=== PATIENT | male | born 1965 | race Caucasian/White ===

== ENCOUNTER → 2020-02-05 | Outpatient (CLI) | payer SELFPAY ==
[~2020-02-05] MED LIST: HYDR1TAB94 PO; Hydrocodone-Ap1 EA23 PO; IBUP600 PO; IBUP800; LEVE500 PO; ONDA4 PO; PROM25 PO; Ultram50 MG PO
== END | disposition home or self-care (01) ==
LOC: LAB SHORT 08:27 → LAB 08:27 → LAB SHORT 02-06 08:27
DX: R30.0 Dysuria (principal)
CPT/HCPCS: 87077; 87086; 87186

== ENCOUNTER → 2020-03-21 | Outpatient (CLI) | payer SELFPAY | END | disposition home or self-care (01) | LOC: LAB 15:15 | DX: R30.0 Dysuria (principal) | CPT/HCPCS: 87086 ==

== ENCOUNTER 2020-06-18 12:52 | Emergency (ER) | payer OTHER ==
[~2020-06-18] VITALS: Ht 177.8 cm; Wt 78.0 kg
[2020-06-18 13:20] LABS: BASOPHILS ABSOLUTE AUTO 0.04 K/mm3 (0.00-0.23); BASOPHILS PERCENT AUTO 0 % (0-2); EOSINOPHILS ABSOLUTE AUTO 0.04 K/mm3 (0.00-0.68); EOSINOPHILS PERCENT AUTO 0 % (0-6); Hematocrit 43.2 % (37.0-53.0); Hemoglobin 14.6 g/dL (13.5-17.5); IMMATURE GRAN ABSOLUTE AUTO 0.12 K/mm3 (0.00-0.10); IMMATURE GRAN PERCENT AUTO 1 % (0-1); LYMPHOCYTES ABSOLUTE AUTO 1.09 K/mm3 (0.84-5.20); LYMPHOCYTES PERCENT AUTO 6 % (21-46); MONOCYTES ABSOLUTE AUTO 1.84 K/mm3 (0.16-1.47); MONOCYTES PERCENT AUTO 11 % (4-13); Mean Corpuscular HGB 28.2 pg (26.0-34.0); Mean Corpuscular HGB Conc 33.8 g/dL (31.5-36.5); Mean Corpuscular Volume 84 fL (80-100); Mean Platelet Volume 10.5 fL (9.1-12.4); NEUTROPHILS PERCENT AUTO 82 % (41-73); Platelet Count 218 K/mm3 (150-400); RDW Coefficient Variation 13.1 % (11.7-14.2); RDW Standard Deviation 40.3 fL (35.1-46.3); Red Blood Cell Count 5.17 M/mm3 (4.30-5.90); White Blood Cell Count 17.13 K/mm3 (4.00-11.30)
[2020-06-18 13:45] LABS: Alanine Aminotransfer (ALT/SGP 22 U/L (12-78); Albumin, Blood 3.2 g/dL (3.4-5.0); Albumin/Globulin Ratio 0.7 (0.8-1.8); Alk Phos 186 U/L (50-136); Anion Gap 10 mmol/L (6-16); Aspartate Aminotrans (AST/SGOT 20 U/L (12-37); Bilirubin, Total 1.8 mg/dL (0.1-1.0); Blood Urea Nitrogen 20 mg/dL (8-24); Bun/Creatinine Ratio 16.3 (12.0-20.0); CO2, Blood 20 mmol/L (21-32); Calcium, Blood 9.4 mg/dL (8.5-10.1); Chloride, Blood 107 mmol/L (98-108); Creatinine, Blood 1.23 mg/dL (0.60-1.20); Globulin, Blood 4.5 g/dL (2.2-4.0); Glomerular Filtration Rate >60 (60-); Glucose, Blood 99 mg/dL (70-99); Potassium, Blood 3.8 mmol/L (3.5-5.5); Sodium, Blood 137 mmol/L (136-145); Total Protein, Blood 7.7 g/dL (6.4-8.2)
[2020-06-18 15:00] LABS: Source, Urine Clean Catch
[2020-06-18 15:14] LABS: Appearance, Urine Cloudy (Clear); Bilirubin, Urine Neg (Neg); Blood, Urine 4+ (Neg); Color, Urine Yellow (P-Yellow); Glucose Qualitative, Urine Neg (Neg); Ketones, Urine 3+ (Neg); Leukocyte Esterase, Urine 3+ (Neg); Nitrite, Urine Neg (Neg); Protein, Urine 3+ (Neg); Urobilinogen, Urine 2+ (Normal)
[2020-06-18 15:22] LABS: White Blood Cells, Urine TNTC /hpf (0-5)
[2020-06-18 15:23] LABS: Bacteria Mod /hpf; Squamous Epithelial Cells Not Seen /hpf (Few)
[2020-06-18 17:41] LABS: Influenza A, PCR NEGATIVE (NEGATIVE); Influenza B, PCR NEGATIVE (NEGATIVE); Resp Syncytial Virus, PCR NEGATIVE (NEGATIVE); SARS-Cov-2 (COVID-19) PCR, MMC NEGATIVE (NEGATIVE)
== END 2020-06-18 18:50 | disposition home or self-care (01) ==
LOC: ER 12:52
PROVIDERS: Emergency Medicine; Physician Assistant
DX: N13.2 Hydronephrosis with renal and ureteral calculous obstruction (principal); Z88.5 Allergy status to narcotic agent; Z87.891 Personal history of nicotine dependence; Z20.822 Contact with and (suspected) exposure to COVID-19
CPT/HCPCS: 0241U; 36415; 74176; 80053; 81001; 83605; 85025; 87040; 87086; 96361; 96365; 96375; 99284-25; J0696; J1885; J2405; J7030

== ENCOUNTER 2025-02-27 04:58 | Observation (INO) | payer OTHER ==
[~2025-02-27] VITALS: Ht 177.8 cm; Wt 74.9 kg
[2025-02-27 05:54] LABS: BASOPHILS ABSOLUTE AUTO 0.03 K/mm3 (0.00-0.23); BASOPHILS PERCENT AUTO 0 % (0-2); EOSINOPHILS ABSOLUTE AUTO 0.15 K/mm3 (0.00-0.68); EOSINOPHILS PERCENT AUTO 2 % (0-6); Hematocrit 47.5 % (37.0-53.0); Hemoglobin 15.7 g/dL (13.5-17.5); IMMATURE GRAN ABSOLUTE AUTO 0.01 K/mm3 (0.00-0.10); IMMATURE GRAN PERCENT AUTO 0 % (0-1); LYMPHOCYTES ABSOLUTE AUTO 2.88 K/mm3 (0.84-5.20); LYMPHOCYTES PERCENT AUTO 35 % (21-46); MONOCYTES ABSOLUTE AUTO 0.70 K/mm3 (0.16-1.47); MONOCYTES PERCENT AUTO 8 % (4-13); Mean Corpuscular HGB Conc 33.1 g/dL (31.5-36.5); Mean Corpuscular Volume 85 fL (80-100); NEUTROPHILS ABSOLUTE AUTO 4.55 K/mm3 (1.96-9.15); NEUTROPHILS PERCENT AUTO 55 % (41-73); NRBC ABSOLUTE 0.00 K/mm3 (0.00-0.02); NRBC Auto 0.0 /100 WBC (0.0-0.2); Platelet Count 293 K/mm3 (150-400); RDW Coefficient Variation 13.5 % (11.7-14.2); RDW Standard Deviation 42.0 fL (35.1-46.3)
[2025-02-27 06:14] LABS: Alanine Aminotransfer (ALT/SGP 28.0 U/L (12-78); Albumin, Blood 4.4 g/dL (3.4-5.0); Albumin/Globulin Ratio 1.3 (0.8-1.8); Anion Gap 9.0 mmol/L (3-11); Aspartate Aminotrans (AST/SGOT 19.0 U/L (12-37); Bilirubin, Total 1.0 mg/dL (0.1-1.0); Blood Urea Nitrogen 16.0 mg/dL (8-24); CO2, Blood 26.0 mmol/L (21-32); Calcium, Blood 9.4 mg/dL (8.5-10.1); Chloride, Blood 108.0 mmol/L (98-108); Creatinine, Blood 1.01 mg/dL (0.60-1.20); Globulin, Blood 3.4 g/dL (2.2-4.0); Glucose, Blood 87.0 mg/dL (70-99); Potassium, Blood 3.5 mmol/L (3.5-5.5); Sodium, Blood 139.0 mmol/L (136-145); Total Protein, Blood 7.8 g/dL (6.4-8.2)
[2025-02-27] MEDS ORDERED: NS 500 ML IV SCH (06:20)
[2025-02-27] MEDS ORDERED: Ondansetron HCl 2 MG / ML 2ML Vial IV ONE (06:20)
[2025-02-27] MEDS ORDERED: FLU VACC TS2025-26(6MOS UP)/PF 45 MCG/0.5 ML SYRINGE IM SCH (07:25)
[2025-02-27 11:15] VITALS: BP 136/104
--- NOTE | 2025-02-27 11:25 | NUR ---
1115- pt arrived in stable condition. ind in rom. steady on feet.
[2025-02-27] MEDS ORDERED: Prinivil10 MG PO (11:29)
[2025-02-27] MEDS ORDERED: FAMO20 PO (11:30)
[2025-02-27 12:05] LABS: Prostate Specific Antigen 2.290 ng/mL (0.000-4.000)
--- NOTE | 2025-02-27 13:26 | NUR ---
1200- THIS RN CALLED MD BECERRIL AND ASKED FOR PT'S HOME MED LISINOPRIL 10MG TO BE ORDERED PER PT'S DEMANDING REQUEST. PT IS UPSET HE HAS NOT BEEN GIVEN HIS MED YET TODAY DESPITE ASKING JONE IN THE ER WELL (PER PT). MD BECERRIL SAID HE WILL GET TO IT WHEN HE CAN.
[2025-02-27 15:42] VITALS: BP 150/94
[2025-02-27] MEDS ORDERED: Polyethylene Glycol 3350 17 gm PO ONE (16:00)
[2025-02-27] MEDS ORDERED: Peg/Electrolytes 4,000 ML BTL PO ONE (18:00)
--- NOTE | 2025-02-27 18:30 | NUR ---
SUMMARY- AAOX4. ANXIOUS AND IRRITABLE THIS SHIFT. PT CAN EASILY OBSESS OVER TOPICS AND BECOME UPSET. PT SOMEWHAT COOPERATIVE THIS SHIFT. PT'S PLAN OF CARE REIENFORCED SEVERAL TIMES THIS SHIFT PER PT REQUEST. NO ACUTE EVENTS THIS SHIFT SINCE ADMISSION TO FLOOR. PT HAD X3 SMALL BM'S THIS SHIFT PRIOR TO STARTING BOWEL PREP THIS EVENING. X1 BM WAS SLIGHTLY BLOODY. PT DENIES ANY PAINT THIS SHIFT. PT SPENT ALMOST THE ENTIRE SHIFT SINCE ADMISSION ON THE PHONE ON FACETIME WITH HIS [facility] IN THE [facility].
[2025-02-27 19:33] VITALS: BP 151/98
[2025-02-28] VITALS (40 sets, daily range): BP systolic 93–148; BP diastolic 57–97
--- NOTE | 2025-02-28 02:29 | NUR ---
ORIENTING NURSE DOCUMENTATION REVIEW: TREATMENTS, MEDICATIONS AND PATIENT CARE PROVIDED TO PATIENT AND DOCUMENTATION ENTERED BY ORIENTING NURSEBRODERICK, OVERSEEN BY THIS RN.
--- NOTE | 2025-02-28 04:51 | NUR ---
SHIFT SUMMARY PATIENT IS A&OX4, PLESANT AND COOPERATIVE LATER IN SHIFT, HAS A LOT OF STRESS ONGOING AND AFTER VENTING PATIENT BECAME A LITTLE HAPPIER. HE IS SIPS AND CHIPS WILL BE MADE NPO AT 0600, FINISHED THE GO LIGHTLY ALTHOUGH IS COMPLAINING OF ABDOMNIAL CRAMPING DUE TO THE GO LIGHTLY. CALL LIGHT IN REACH, ABLE TO MAKE NEEDS KNOWN, BED AT LOWEST LEVEL, BED RAILS UP X 2.
[2025-02-28 05:39] LABS: BASOPHILS ABSOLUTE AUTO 0.05 K/mm3 (0.00-0.23); BASOPHILS PERCENT AUTO 1 % (0-2); EOSINOPHILS ABSOLUTE AUTO 0.20 K/mm3 (0.00-0.68); EOSINOPHILS PERCENT AUTO 2 % (0-6); Hematocrit 42.5 % (37.0-53.0); Hemoglobin 14.1 g/dL (13.5-17.5); IMMATURE GRAN ABSOLUTE AUTO 0.04 K/mm3 (0.00-0.10); IMMATURE GRAN PERCENT AUTO 0 % (0-1); LYMPHOCYTES ABSOLUTE AUTO 2.48 K/mm3 (0.84-5.20); LYMPHOCYTES PERCENT AUTO 27 % (21-46); MONOCYTES ABSOLUTE AUTO 0.84 K/mm3 (0.16-1.47); MONOCYTES PERCENT AUTO 9 % (4-13); Mean Corpuscular HGB Conc 33.2 g/dL (31.5-36.5); Mean Corpuscular Volume 85 fL (80-100); NEUTROPHILS ABSOLUTE AUTO 5.62 K/mm3 (1.96-9.15); NEUTROPHILS PERCENT AUTO 61 % (41-73); NRBC ABSOLUTE 0.00 K/mm3 (0.00-0.02); NRBC Auto 0.0 /100 WBC (0.0-0.2); Platelet Count 266 K/mm3 (150-400); RDW Coefficient Variation 13.6 % (11.7-14.2); RDW Standard Deviation 41.8 fL (35.1-46.3)
[2025-02-28 06:07] LABS: Anion Gap 9.0 mmol/L (3-11); Blood Urea Nitrogen 10.0 mg/dL (8-24); CO2, Blood 25.0 mmol/L (21-32); Calcium, Blood 8.7 mg/dL (8.5-10.1); Chloride, Blood 109.0 mmol/L (98-108); Creatinine, Blood 0.85 mg/dL (0.60-1.20); Glucose, Blood 85.0 mg/dL (70-99); Potassium, Blood 3.4 mmol/L (3.5-5.5); Sodium, Blood 140.0 mmol/L (136-145)
[2025-02-28] MEDS ORDERED: Potassium Chl 20MEQ/Water100ML 100 ML IV STA (08:00)
--- NOTE | 2025-02-28 08:42 | NUR ---
OUT OF ROOM NOTE: PATIENT LEFT THE ROOM VIA W/C AT 0841 TO DAY SURGERY FOR COLONOSCOPY.
--- NOTE | 2025-02-28 09:06 | NUR ---
02/28/25 0906 Jojo Dominguez CONFIRMED AND REVIEWED H&P, MEDCICATIONS, ALLERGIES, MEDICAL HISTORY, RESPIRATORY HISTORY, VITAL SIGNS, 3-LEAD EKG, CONSENTS, AND PHYSICIAN ORDERS. PATIENT CONFIRMS NPO STATUS AND AGREES WITH SCHEDULED PROCEDURE. MONITOR INTACT WITH CONTINUOUS PULSE OXIMETRY, CAPNOGRAPHY, 3-LEAD EKG, INTERMITTENT BP. SUPPLEMENTAL O2 TO BE TITRATED THROUGHOUT PROCEDURE TO MAINTAIN O2 SATURATION ABOVE 90%. PATIENT DETERMINED TO BE ASA APPROPRIATE FOR PROPOFOL SEDATION PRIOR TO START OF PROCEDURE BY DR. FOWLER.
--- NOTE | 2025-02-28 14:22 | NUR ---
SHIFT/DISCHARGE SUMMARY: PATIENT HAD HIS COLONOSCOPY DONE THIS MORNING BY DR. FISH (GI). POST-OP VITALS TAKEN. PATIENT PLACE ON REGULAR DIET PER ORDER, TOLERATING ORAL INTAKE, DENIES NAUSEA. PATIENT RECEIVED OT DOSE PO POTASSIUM PER ORDER. PATIENT CONTINENT OF BAB AND AMBULATES TO BATHROOM INDEPENDENTLY. PATIENT A/OX4, PLEASANT AND COOPERATIVE c CARE AND MAKE NEEDS KNOWN. PIV DC'D. PATIENT DISCHARGE HOME. DISCHARGE INSTRUCTIONS PACKET GIVEN TO PATIENT. PATIENT EDUCATED ON ADMITTING DX'S OF COLITIS, S/S, TX, POST-OP COLONSCOCOPY CARE, NEW RX AND TO F/U c PCP AND GI. PATIENT VERBALIZED UNDERSTANDING c NO FURTHER QUESTIONS. RX WAS FAXED TO PATIENT PREFERRED PHARMACY-[facility]. ALL PERSONAL BELONGINGS WERE SENT HOME c PATIENT. PATIENT LEFT THE ROOM AT 1420'S TRANSPORTED VIA W/C BY DENILSON HICKS TO PATIENT ENTRANCE-RIDES AWAITING FOR HIM.
== END 2025-02-28 14:15 | disposition home or self-care (01) ==
LOC: ER 04:58 → MEDS 04:59 → ENPENDDIS 02-28 10:50 → MEDS 02-28 14:15
PROVIDERS: Emergency Medicine; ADMIT Student in an Organized Health Care Education/Training Program
DX: K52.9 Noninfective gastroenteritis and colitis, unspecified (principal); K62.5 Hemorrhage of anus and rectum; K21.9 Gastro-esophageal reflux disease without esophagitis; I10 Essential (primary) hypertension; Z87.891 Personal history of nicotine dependence; Z88.5 Allergy status to narcotic agent; Z79.899 Other long term (current) drug therapy
CPT/HCPCS: 36415; 74019; 74177; 80048; 80053; 82378; 83605; 85025; 88305; 96374-59; 99285-25; A9270; G0103; G0378; J2405; J2704; J7030; J7120; Q9967

== ENCOUNTER → 2025-03-09 | Outpatient (CLI) | payer OTHER ==
[~2025-03-09] MED LIST changes: +FAMO20 PO; +Prinivil10 MG PO
[2025-03-10 18:38] LABS: CALPROTECTIN,FECAL 1940 ug/g (<=49)
== END ==
LOC: LAB 09:34 → LAB SHORT 09:34
PROVIDERS: Internal Medicine Gastroenterology
DX: K51.211 Ulcerative (chronic) proctitis with rectal bleeding (principal)
CPT/HCPCS: 83993